=== PATIENT | male | born 1990 | race Caucasian/White ===

== ENCOUNTER 2019-02-03 14:07 | Emergency (ER) | payer BC ==
[2019-02-03 15:27] VITALS: BP 139/73
[2019-02-03] MEDS ORDERED: cefTRIAXone VIAL(*) 250 MG VIAL IM ONE (15:35)
[2019-02-03] MEDS ORDERED: Azithromycin TAB* 250 MG PO ONE (15:35)
[2019-02-03] MEDS ORDERED: Lidocaine 1% MPF ** 5 ML VIAL IM ONE (15:35)
--- NOTE | 2019-02-03 16:01 | UC ---
Complaint Male HPI - HPI Summary HPI Summary: Pt presents with concern for STD exposure. Pt states that he had oral sex with new partner 5 weeks ago and was contacted in the last 24 hours by partner stating that she had tested positive for pharyngeal gonorrhea. Pt stated that partner had been with another partner after pt had oral sex with her. Pt denies any ST, urinary symptoms or penile discharge. - History of Current Complaint Chief Complaint: UCGeneralIllness Stated Complaint: PERSONAL Time Seen by Provider: 02/03/19 15:25 Hx Obtained From: Patient Onset/Duration: Other - no symptoms Severity Currently: None Pain Intensity: 0 Location: None Associated Signs And Symptoms: Positive: Negative - Risk Factors Testicular Torsion: Negative - Allergies/Home Medications Allergies/Adverse Reactions: Allergies Allergy/AdvReac Type Severity Reaction Status Date / Time No Known Allergies Allergy Verified 02/03/19 15:19 Home Medications: Home Medications NK [No Home Medications Reported] 02/03/19 [History Confirmed 02/03/19] PMH/Surg Hx/FS Hx/Imm Hx Previously Healthy: Yes - Surgical History Surgical History: Yes Surgery Procedure, Year, and Place: cyst removal - Family History Known Family History: Positive: None - Social History Occupation: Employed Full-time Alcohol Use: None Substance Use Type: None Smoking Status (MU): Never Smoked Tobacco Have You Smoked in the Last Year: No - Immunization History Vaccination Up to Date: Yes Review of Systems All Other Systems Reviewed And Are Negative: Yes Constitutional: Positive: Negative Skin: Positive: Negative Eyes: Positive: Negative ENT: Positive: Negative Respiratory: Positive: Negative Cardiovascular: Positive: Negative Gastrointestinal: Positive: Negative Genitourinary: Positive: Negative Motor: Positive: Negative Neurovascular: Positive: Negative Musculoskeletal: Positive: Negative Neurological: Positive: Negative Psychological: Positive: Negative Is Patient Immunocompromised?: No Physical Exam Triage Information Reviewed: Yes Appearance: Well-Appearing Vital Signs: Initial Vital Signs Temp 98.5 F 02/03/19 15:19 Pulse 80 02/03/19 15:19 Resp 16 02/03/19 15:19 BP 139/73 02/03/19 15:19 Pulse Ox 100 02/03/19 15:19 Vital Signs Reviewed: Yes Eye Exam: Normal ENT Exam: Normal Dental Exam: Normal Neck exam: Normal Respiratory Exam: Normal Cardiovascular Exam: Normal Musculoskeletal Exam: Normal Neurological Exam: Normal Psychological Exam: Normal Skin Exam: Normal Complaint Male Course/Dx - Differential Dx/Diagnosis Differential Diagnosis/HQI/PQRI: Urinary Tract Infection, Other - STI Provider Diagnosis: STD exposure Discharge ED - Sign-Out/Discharge Documenting (check all that apply): Patient Departure All imaging exams completed and their final reports reviewed: No Studies - Discharge Plan Condition: Stable Disposition: HOME Patient Education Materials: Safe Sex (ED) Referrals: Rob Glover MD [Primary Care Provider] - If Needed - Billing Disposition and Condition Condition: STABLE Disposition: Home - Attestation Statements Provider Attestation: I was available for consult. This patient was seen by the C[facility]. The patient was not presented to, seen by, or examined by me. -Lonnie
[2019-02-04 13:49] LABS: Chlamydia trachomatis NAA Negative (Negative); Neisseria gonorrhoeae (GC) NAA Negative (Negative)
== END 2019-02-03 15:57 | disposition home or self-care (01) ==
LOC: UCCORT 14:07
DX: Z20.2 Contact with and (suspected) exposure to infections with a predominantly sexual mode of transmission (principal)
CPT/HCPCS: 87070; 87491; 87591; 99201; G0463